=== PATIENT | male | born 2000 ===

== ENCOUNTER 2018-05-13 08:09 | Emergency (ER) | payer MEDICAID ==
[~2018-05-13] VITALS: Ht 182.9 cm; Wt 93.3 kg
[2018-05-13 08:23] VITALS: BP 142/79
[2018-05-13] MEDS ORDERED: PERM60CR19 TP (08:53)
== END 2018-05-13 09:50 | disposition home or self-care (01) ==
LOC: ER 08:12
DX: B86 Scabies (principal); Z56.0 Unemployment, unspecified
CPT/HCPCS: 99283